=== PATIENT | female | born 1955 | race African-American/Black ===

== ENCOUNTER → 2017-03-25 | Day surgery (SDC) | payer MEDICARE ==
[~2017-03-25] MED LIST: ALPRAZOLAM0.5 MG PO; EXCEDRIN MIGRA1 EACH PO; FLEXERIL PO; HYDROCODON-ACE1 EAC5 PO; IBUPROFEN800 MG PO; PRAVACHOL; PROZAC PO; VERAPAMIL ER240 M1 PO
--- NOTE | ~2017-03-25 | OR ---
Unit #: [id number] #: [id number] Patient: MONIKA HAJI [id number] [address] [id number] MR#: [id number] NAME: MONIKA HAJI ROOM: Date of Procedure: 03/25/2017 Admission Date: 03/25/2017 Surgeon: Mitchell Urrutia M.D. : 1955 Attending Physician: Mitchell Urrutia M.D. Primary Care Physician: Shalom Narayan A.P.R.N. OPERATIVE REPORT PROCEDURE PERFORMED Colonoscopy to cecum. INDICATIONS FOR PROCEDURE A 61-year-old female, average risk for colorectal cancer. MEDICATIONS Monitored anesthesia. POSTOPERATIVE FINDINGS 1. Normal exam to cecum. 2. Good prep. PLAN Repeat colonoscopy in 10 years. DESCRIPTION OF PROCEDURE The patient was explained of the procedure, risks, and benefits along with risks and benefits of anesthesia. She was brought to the endoscopy room. Propofol anesthesia was given. Rectal exam was done, which was normal. Colonoscope was lubricated, passed up the rectum, advanced under direct vision all the way to the cecum. The cecum was identified by ileocecal valve and appendiceal orifice. I then started to pull the scope out carefully looking. No polyps, masses, or colitis were seen. Mucosa was normal and healthy. I retroflexed in the rectum, small hemorrhoids were seen. The scope was gently pulled out. She tolerated it well. Dictated by... Fozia Bladeras/zeb TD: 03/25/2017 14:53 JOB #: [id number] Unit #: [id number] #: [id number] Patient: MONIKA HAJI OPERATIVE REPORT Page 1 of 1 X Mitchell Urrutia MD X PROCEDURE OPERATIVE NOTE
== END | disposition home or self-care (01) ==
LOC: COPS 07:01
DX: Z12.11 Encounter for screening for malignant neoplasm of colon (principal); K64.9 Unspecified hemorrhoids; I10 Essential (primary) hypertension; Z87.440 Personal history of urinary (tract) infections; Z88.0 Allergy status to penicillin; Z98.51 Tubal ligation status; Z96.651 Presence of right artificial knee joint; Z79.891 Long term (current) use of opiate analgesic; Z79.899 Other long term (current) drug therapy; Z98.890 Other specified postprocedural states